=== PATIENT | female | born 1990 | race African-American/Black ===

== ENCOUNTER 2017-11-12 10:00 | Emergency (ER) | payer OTHER ==
[~2017-11-12] VITALS: Ht 167.6 cm; Wt 71.2 kg
[2017-11-12 10:10] VITALS: BP 115/66
[2017-11-12] MEDS ORDERED: CEPHALEXIN500 MG ORAL (11:01)
[2017-11-12] MEDS ORDERED: PREDNISONE20 MG ORAL (11:01)
[2017-11-12] MEDS ORDERED: NAPHCON-A EYE D15 ML OP (11:01)
[2017-11-12] MEDS ORDERED: CLARITIN10 M2 ORAL (11:06)
[2017-11-12 11:12] VITALS: BP 115/66
--- NOTE | 2017-11-12 13:05 | Emergency Room Report ---
History of Present Illness General Chief Complaint: General Complaint Source: Patient Present Illness HPI Patient presents emergency department today complaining of right eye swelling. Patient states that she's had intermittent episodes of right eye swelling. She was seen at [facility] where she was told that it might be a stye and was given antibiotic eyedrops. She states the symptoms are not improving she still having episodes were swollen and gets better throughout the day. She does not remember using a typical creams or any mascara. No other complaints are noted. She denies any difficulty with vision or eye pain. She does complain of right upper eyelid discomfort when swallowing. No other complaints are noted. Patient stated that she took some Benadryl with some variable improvement.No other modifying factors. No other associated signs and symptoms. No other complaints were noted. Allergies: Coded Allergies: No Known Allergies (Unverified , 11/12/17) Patient History Past Medical History: none Past Surgical History: none Pertinent Family History: none Social History: Denies: smoking, alcohol use, drug use Last Menstrual Period: 10/02/17 Reviewed Nursing Documentation: PMH: Agreed; PSxH: Agreed Nursing Documentation-PMH Past Medical History: No Stated History Review of Systems All Other Systems: negative except mentioned in HPI Physical Exam Vital Signs Date Time Temp Pulse Resp B/P (MAP) Pulse Ox O2 Delivery O2 Flow Rate FiO2 11/12/17 10:10 98.9 94 18 115/66 99 Room Air 98.9 Sp02 EP Interpretation: reviewed, normal General Appearance: normal inspection, well appearing, no apparent distress, alert Head: atraumatic Eyes: right eye lid inflammation; bilateral eye normal inspection ENT: normal ENT inspection, hearing grossly normal, normal voice Neck: normal inspection, full range of motion, supple, no bony tend Respiratory: normal inspection, lungs clear, normal breath sounds, no respiratory distress, no retraction, no wheezing Cardiovascular #1: regular rate, rhythm, no edema Gastrointestinal: normal inspection, normal bowel sounds, non tender, soft, no guarding, no hernia Genitourinary: no CVA tenderness Musculoskeletal: normal inspection, back normal, normal range of motion Neurologic: normal inspection, alert, responsive, speech normal Psychiatric: normal inspection, judgement/insight normal, mood/affect normal Skin: normal inspection, normal color, no rash Medical Decision Making Diagnostic Impression: Primary Impression: Blepharitis of eyelid of right eye ER Course Patient presents emergency department today complaining of right eye swelling. Differential considerations include stye, blepharitis, allergic reaction. Patient's exam appears fairly benign but there is evidence of edema of patient' s right eyelid. This is consistent with acute allergic reaction. Other considerations include possible infection. Given patient's presentation I felt it was reasonable to try some Naphcon, Claritin, prednisone, Keflex. Recommend outpatient follow-up with ophthalmology.Patient is advised to follow up with primary doctor in 2-3 days and return the emergency room for any worsening symptoms and as needed. Last Vital Signs Date Time Temp Pulse Resp B/P (MAP) Pulse Ox O2 Delivery O2 Flow Rate FiO2 11/12/17 11:12 98.9 94 18 115/66 99 Room Air 98.9 Status: improved Disposition: HOME, SELF-CARE Condition: Stable Scripts Loratadine (CLARITIN) 10 Mg Capsule 10 MG ORAL DAILY for 14 Days, CAP Prov: Gulshan Rodriguez MD 11/12/17 Naphazoline Hcl/Phenir Mal (NAPHCON-A EYE DROPS) 15 Ml Drops 15 ML OP QID for 7 Days, ML Prov: Gulshan Rodriguez MD 11/12/17 Prednisone* (PREDNISONE*) 20 Mg Tablet 40 MG ORAL DAILY, #10 TAB Prov: Gulshan Rodriguez MD 11/12/17 Cephalexin* (KEFLEX*) 500 Mg Capsule 500 MG ORAL EVERY 6 HOURS for 7 Days, CAP Prov: Gulshan Rodriguez MD 11/12/17 Referrals: [facility] ([facility]P) Baldemar Ponce MD Patient Instructions: Blepharitis Gulshan Rodriguez MD Nov 12, 2017 13:05
== END 2017-11-12 11:13 | disposition home or self-care (01) ==
LOC: EMR 11:10
DX: H01.001 Unspecified blepharitis right upper eyelid (principal)
CPT/HCPCS: 99284; J7512

== ENCOUNTER 2018-09-16 10:47 | Emergency (ER) | payer OTHER ==
[~2018-09-16] VITALS: Ht 170.2 cm; Wt 72.6 kg
[~2018-09-16 10:47] MED LIST: CEPHALEXIN500 MG ORAL; CLARITIN10 M2 ORAL; NAPHCON-A EYE D15 ML OP; PREDNISONE20 MG ORAL
--- NOTE | 2018-09-16 11:11 | NUR ---
ED Nurse Note: Pt came into the ER w/ complaints of sore throat x 2 days. Hoarseness noted on pt. Pt stated the pain in her throat is an 8/10. Non radiating. Pt is A + O x4. Ambulatory. Skin warm to touch.
[2018-09-16 11:12] VITALS: BP 97/66
[2018-09-16] MEDS ORDERED: TYLENOL EXTRA500 MG ORAL (11:41)
[2018-09-16] MEDS ORDERED: AMOXICILLIN500 MG ORAL (11:41)
[2018-09-16 11:46] VITALS: BP 100/62
--- NOTE | 2018-09-16 11:47 | NUR ---
ER DISCHARGE NOTE: Patient is cleared to be discharged per ERMD, pt is aox4, on room air, with stable vital signs. pt was given dc and prescription instructions, pt was able to verbalize understanding, pt id band removed without complications. pt is able to ambulate with steady gait. pt took all belongings.
--- NOTE | 2018-09-16 11:53 | Emergency Room Report ---
History of Present Illness General Chief Complaint: Sore Throat Source: Patient Present Illness HPI 28-year-old female presents ED for evaluation. Complaining of sore throat for the last 2 days. Dull, 8 out of 10, nonradiating. Radiating towards the left ear. Denies cough. Denies fevers chills. Denies sick contacts or recent travel. No other aggravating relieving factors. Denies any other associated symptoms Allergies: Coded Allergies: No Known Allergies (Unverified , 11/12/17) Patient History Past Medical History: none Past Surgical History: none Pertinent Family History: none Social History: Denies: smoking, alcohol use, drug use Last Menstrual Period: 4-7 Now: No Immunizations: UTD Reviewed Nursing Documentation: PMH: Agreed; PSxH: Agreed Nursing Documentation-PMH Past Medical History: No Stated History Review of Systems All Other Systems: negative except mentioned in HPI Physical Exam Vital Signs Date Time Temp Pulse Resp B/P (MAP) Pulse Ox O2 Delivery O2 Flow Rate FiO2 09/16/18 11:06 98.8 82 20 98 Room Air 09/16/18 11:12 97/66 Sp02 EP Interpretation: reviewed, normal General Appearance: no apparent distress, alert, GCS 15, non-toxic Head: normocephalic, atraumatic Eyes: bilateral eye normal inspection, bilateral eye PERRL ENT: hearing grossly normal, no angioedema, normal voice, TMs + canals normal, pharyngeal erythema, tonsillar exudate Neck: full range of motion, supple, no meningismus, supple/symm/no masses Respiratory: chest non-tender, lungs clear, normal breath sounds, speaking full sentences Cardiovascular #1: regular rate, rhythm, no edema Cardiovascular #2: 2+ carotid (R), 2+ carotid (L), 2+ radial (R), 2+ radial (L) , 2+ dorsalis pedis (R), 2+ dorsalis pedis (L) Gastrointestinal: normal bowel sounds, non tender, soft, non-distended, no guarding, no rebound Rectal: deferred Genitourinary: normal inspection, no CVA tenderness Musculoskeletal: back normal, gait/station normal, normal range of motion, non- tender Neurologic: alert, oriented x3, responsive, motor strength/tone normal, sensory intact, speech normal Psychiatric: judgement/insight normal, memory normal, mood/affect normal, no suicidal/homicidal ideation Reflexes: 3+ bicep (R), 3+ bicep (L), 3+ tricep (R), 3+ tricep (L), 3+ knee (R) , 3+ knee (L) Skin: normal color, no rash, warm/dry, well hydrated Lymphatic: no adenopathy Medical Decision Making Diagnostic Impression: Primary Impression: Pharyngitis Qualified Codes: J02.9 - Acute pharyngitis, unspecified ER Course Hospital Course 28-year-old female presents to ED complaining of sore throat Differential diagnoses include: URI, pharyngitis, otitis media Clinical course Patient placed on stretcher. After initial history, physical exam reveals a female in no acute distress. Bilateral TM unremarkable. There is pharyngeal erythema w/ tonsillar exudates. Noted lymphadenopathy. Clinical findings consistent with pharyngitis. Discussed findings with patient. We'll discharged to home with antibiotics. Safe for discharge and close outpatient follow-up. Does not have a PMD. We'll provide referrals Diagnosis - pharyngitis Stable and discharged home with prescriptions for tylenol, amoxicillin. Instructed to followup with PMD. return to ED if symptoms recur or worsen Last Vital Signs Date Time Temp Pulse Resp B/P (MAP) Pulse Ox O2 Delivery O2 Flow Rate FiO2 09/16/18 11:46 98.2 67 19 100/62 98 Room Air Status: improved Disposition: HOME, SELF-CARE Condition: Stable Scripts Acetaminophen* (TYLENOL EXTRA STRENGTH*) 500 Mg Tablet 500 MG ORAL Q8H PRN for Prn Headache/Temp > 101, #30 TAB 0 Refills Prov: Saman Vegas MD 09/16/18 Amoxicillin* (AMOXIL*) 500 Mg Capsule 500 MG ORAL THREE TIMES A DAY, #21 CAP Prov: Saman Vegas MD 09/16/18 Referrals: [facility] Patient Instructions: Pharyngitis, [id number] Saman Vegas MD September 16, 2018 11:53
== END 2018-09-16 11:50 | disposition home or self-care (01) ==
LOC: EMR 11:49
DX: J02.9 Acute pharyngitis, unspecified (principal)
CPT/HCPCS: 99282

== ENCOUNTER 2018-10-01 09:42 | Emergency (ER) | payer OTHER ==
[~2018-10-01] VITALS: Ht 170.2 cm; Wt 72.6 kg
[~2018-10-01 09:42] MED LIST changes: +AMOXICILLIN500 MG ORAL; +TYLENOL EXTRA500 MG ORAL
[2018-10-01 09:47] VITALS: BP 115/74
[2018-10-01 10:28] LABS: APPEARANCE,URINE CLEAR; BILIRUBIN, URINE NEGATIVE (NEGATIVE); COLOR,URINE PALE YELLOW; GLUCOSE, URINE (UA) NEGATIVE (NEGATIVE); KETONES,URINE NEGATIVE (NEGATIVE); LEUKOCYTE ESTERASE ,URINE NEGATIVE (NEGATIVE); NITRITE,URINE NEGATIVE (NEGATIVE); PH,URINE 7 (4.5-8.0); PROTEIN,URINE 1+ (NEGATIVE); UROBILINOGEN,URINE NORMAL MG/DL (0.0-1.0)
[2018-10-01 10:30] LABS: BASOPHILS % (AUTO) 0.9 % (0.0-2.0); EOSINOPHILS % (AUTO) 1.1 % (0.0-3.0); HEMATOCRIT 35.7 % (37.0-47.0); HEMOGLOBIN 12.7 G/DL (12.0-16.0); LYMPHOCYTES % (AUTO) 25.3 % (20.0-45.0); MEAN CORPUSCULAR VOLUME 91 FL (80-99); MONOCYTES % (AUTO) 5.4 % (1.0-10.0); NEUTROPHILS % (AUTO) 67.3 % (45.0-75.0); PLATELET COUNT 243 K/UL (150-450); RED BLOOD COUNT 3.91 M/UL (4.20-5.40); RED CELL DISTRIBUTION WIDTH 11.2 % (11.6-14.8); WHITE BLOOD COUNT 10.2 K/UL (4.8-10.8)
[2018-10-01 10:38] LABS: ANION GAP 9 mmol/L (5-15); BLOOD UREA NITROGEN 6 mg/dL (7-18); CARBON DIOXIDE 28 MMOL/L (21-32); CHLORIDE 103 MMOL/L (98-107); CREATININE 0.9 MG/DL (0.55-1.30); POTASSIUM 3.8 MMOL/L (3.5-5.1); SODIUM 140 MMOL/L (136-145)
[2018-10-01 10:43] LABS: ALANINE AMINOTRANSFERASE 22 U/L (12-78); ALBUMIN 4.2 G/DL (3.4-5.0); ALBUMIN/GLOBULIN RATIO 1.2 (1.0-2.7); ALKALINE PHOSPHATASE 72 U/L (46-116); ASPARTATE AMINO TRANSFERASE 19 U/L (15-37); BILIRUBIN,TOTAL 0.7 MG/DL (0.2-1.0)
[2018-10-01 12:14] VITALS: BP 119/82
[2018-10-01] MEDS ORDERED: NKM (12:14)
--- NOTE | 2018-10-01 12:54 | Diagnostic Imaging Report ---
Indication: Pelvic pain. Negative test. Vaginal bleeding. Technique: Grayscale and duplex Doppler imaging of the pelvis performed utilizing a transabdominal and endovaginal scan. Comparison: None Findings: The size, contour, and configuration of the uterus is within normal limits. The endometrium is uniformly echogenic and normal in thickness. Endometrium measures 3 mm. The uterus measures 8 x 5.3 x 4.2 cm. The ovaries appear normal bilaterally with good dopplerable blood flow. There is no significant free fluid identified. There is a left ovarian cyst measuring 1.8 cm. This is likely physiologic. The left ovary measures 2.9 x 2.2 x 2.6 cm. Right ovary 2.8 x 1.9 x 3.4 cm. IMPRESSION: Negative pelvic ultrasound. No acute findings.
--- NOTE | 2018-10-01 15:04 | Emergency Room Report ---
History of Present Illness General Chief Complaint: Vaginal Source: Patient Present Illness HPI 28-year-old female presents ED for evaluation. Complaining of vaginal bleeding with passing clots since yesterday. States that she completed her period last week so this is unusual. Denies any pain. Did not believe she is . Denies any nausea or vomiting. Denies dysuria or hematuria. No other aggravating relieving factors. Denies any associated symptoms Allergies: Coded Allergies: No Known Allergies (Unverified , 11/12/17) Patient History Past Medical History: none Past Surgical History: none Pertinent Family History: none Social History: Denies: smoking, alcohol use, drug use Last Menstrual Period: 08/20/2018 Now: No Immunizations: UTD Reviewed Nursing Documentation: PMH: Agreed; PSxH: Agreed Nursing Documentation-PMH Past Medical History: No Stated History Review of Systems All Other Systems: negative except mentioned in HPI Physical Exam Vital Signs Date Time Temp Pulse Resp B/P (MAP) Pulse Ox O2 Delivery O2 Flow Rate FiO2 10/01/18 09:47 98.6 97 18 115/74 (88) 99 Room Air Sp02 EP Interpretation: reviewed, normal General Appearance: no apparent distress, alert, GCS 15, non-toxic Head: normocephalic, atraumatic Eyes: bilateral eye normal inspection, bilateral eye PERRL ENT: hearing grossly normal, normal pharynx, no angioedema, normal voice Neck: full range of motion, supple/symm/no masses Respiratory: chest non-tender, lungs clear, normal breath sounds, speaking full sentences Cardiovascular #1: regular rate, rhythm, no edema Cardiovascular #2: 2+ carotid (R), 2+ carotid (L), 2+ radial (R), 2+ radial (L) , 2+ dorsalis pedis (R), 2+ dorsalis pedis (L) Gastrointestinal: normal bowel sounds, non tender, soft, non-distended, no guarding, no rebound Rectal: deferred Genitourinary: normal inspection, no CVA tenderness Musculoskeletal: back normal, gait/station normal, normal range of motion, non- tender Neurologic: alert, oriented x3, responsive, motor strength/tone normal, sensory intact, speech normal Psychiatric: judgement/insight normal, memory normal, mood/affect normal, no suicidal/homicidal ideation Reflexes: 3+ bicep (R), 3+ bicep (L), 3+ tricep (R), 3+ tricep (L), 3+ knee (R) , 3+ knee (L) Skin: normal color, no rash, warm/dry, well hydrated Lymphatic: no adenopathy Medical Decision Making Diagnostic Impression: Primary Impression: Dysfunctional uterine bleeding ER Course Hospital Course 28-year-old F presents to ED with vaginal bleeding Differential diagnosis includes- ovarian cyst, torsion, ectopic , DUB Clinical course Patient placed on stretcher. After initial history and physical I ordered labs , IV fluids, pelvic US Labs - no leukocytosis, Hb/Hct stable, electrolytes ok, LFTs normal, UA unremarkable, BHCG negative pelvic US - no acute process. good flow to both ovaries discussed findings with patient. no signs of . no evidence of torsion or cyst. Recommend close follow-up with TABLE CUT OFF SAW OPERATOR as outpatient. States she does not have one. We'll provide referrals I feel this is a highly complex case requiring extensive working including EKG/ Rhythm strip, Xray/CT/US, Blood/urine lab work, repeat exams while in ED, and administration of strong opiates/narcotics for pain control, admission to hospital or close patient follow up. Diagnosis - dysfunctional uterine bleeding Stable and discharged to home. Followup with PMD. Return to ED if symptoms recur or worsen Labs Test 10/01/18 10:15 White Blood Count 10.2 K/UL (4.8-10.8) Red Blood Count 3.91 M/UL (4.20-5.40) Hemoglobin 12.7 G/DL (12.0-16.0) Hematocrit 35.7 % (37.0-47.0) Mean Corpuscular Volume 91 FL (80-99) Mean Corpuscular Hemoglobin 32.4 PG (27.0-31.0) Mean Corpuscular Hemoglobin Concent 35.5 G/DL (32.0-36.0) Red Cell Distribution Width 11.2 % (11.6-14.8) Platelet Count 243 K/UL (150-450) Mean Platelet Volume 5.9 FL (6.5-10.1) Neutrophils (%) (Auto) 67.3 % (45.0-75.0) Lymphocytes (%) (Auto) 25.3 % (20.0-45.0) Monocytes (%) (Auto) 5.4 % (1.0-10.0) Eosinophils (%) (Auto) 1.1 % (0.0-3.0) Basophils (%) (Auto) 0.9 % (0.0-2.0) Urine Color Pale yellow Urine Appearance Clear Urine pH 7 (4.5-8.0) Urine Specific Mona 1.005 (1.005-1.035) Urine Protein 1+ (NEGATIVE) Urine Glucose (UA) Negative (NEGATIVE) Urine Ketones Negative (NEGATIVE) Urine Blood 5+ (NEGATIVE) Urine Nitrite Negative (NEGATIVE) Urine Bilirubin Negative (NEGATIVE) Urine Urobilinogen Normal MG/DL (0.0-1.0) Urine Leukocyte Esterase Negative (NEGATIVE) Urine RBC 2-4 /HPF (0 - 2) Urine WBC 0 /HPF (0 - 2) Urine Squamous Epithelial Cells Occasional /LPF Urine Bacteria None /HPF (NONE) Urine HCG, Qualitative Negative (NEGATIVE) Sodium Level 140 MMOL/L (136-145) Potassium Level 3.8 MMOL/L (3.5-5.1) Chloride Level 103 MMOL/L (98-107) Carbon Dioxide Level 28 MMOL/L (21-32) Anion Gap 9 mmol/L (5-15) Blood Urea Nitrogen 6 mg/dL (7-18) Creatinine 0.9 MG/DL (0.55-1.30) Estimat Glomerular Filtration Rate > 60 mL/min (>60) Glucose Level 103 MG/DL (74-106) Calcium Level 9.0 MG/DL (8.5-10.1) Total Bilirubin 0.7 MG/DL (0.2-1.0) Aspartate Amino Transf (AST/SGOT) 19 U/L (15-37) Alanine Aminotransferase (ALT/SGPT) 22 U/L (12-78) Alkaline Phosphatase 72 U/L (46-116) Total Protein 7.6 G/DL (6.4-8.2) Albumin 4.2 G/DL (3.4-5.0) Globulin 3.4 g/dL Albumin/Globulin Ratio 1.2 (1.0-2.7) Lipase 152 U/L (73-393) CT/MRI/US Diagnostic Results CT/MRI/US Diagnostic Results : Imaging Test Ordered: Pelvic US Impression The size, contour, and configuration of the uterus is within normal limits. The endometrium is uniformly echogenic and normal in thickness. Endometrium measures 3 mm. The uterus measures 8 x 5.3 x 4.2 cm. The ovaries appear normal bilaterally with good dopplerable blood flow. There is no significant free fluid identified. There is a left ovarian cyst measuring 1.8 cm. This is likely physiologic. The left ovary measures 2.9 x 2.2 x 2.6 cm. Right ovary 2.8 x 1.9 x 3.4 cm. Last Vital Signs Date Time Temp Pulse Resp B/P (MAP) Pulse Ox O2 Delivery O2 Flow Rate FiO2 10/01/18 12:14 98.1 88 19 119/82 95 10/01/18 09:47 Room Air Status: improved Disposition: HOME, SELF-CARE Condition: Stable Referrals: [facility] Patient Instructions: Dysfunctional Uterine Bleeding Saman Vegas MD October 01, 2018 15:04
== END 2018-10-01 12:17 | disposition home or self-care (01) ==
LOC: EMR 10:12
DX: N93.8 Other specified abnormal uterine and vaginal bleeding (principal)
CPT/HCPCS: 36415; 76830; 76856; 80053; 81003; 81025; 83690; 85025; 99284

== ENCOUNTER 2020-05-30 09:16 | Emergency (ER) | payer OTHER ==
[~2020-05-30] VITALS: Ht 167.6 cm; Wt 70.3 kg
[~2020-05-30 09:16] MED LIST changes: +NKM
[2020-05-30 09:40] VITALS: BP 123/71
--- NOTE | 2020-05-30 09:40 | NUR ---
ED Nurse Note: Pt walked into ED for RL hand 4th digit "green color" and pain 11/18. Pt has no discahrge or bleeding at site. She is alert and orientedx4, ambulatory. She has been seen by DESTINEY.
[2020-05-30] MEDS ORDERED: Lidocaine 1% Plain 30 ml INJ ONE (09:45)
[2020-05-30] MEDS ORDERED: TYLENOL EXTRA500 MG ORAL (10:27)
[2020-05-30] MEDS ORDERED: CEPHALEXIN500 MG ORAL (10:27)
[2020-05-30] MEDS ORDERED: Bacitracin Oint UD TOPIC ONE (10:30)
--- NOTE | 2020-05-30 10:55 | NUR ---
ED Nurse Note: Bacitracin and dressing applied to hand site where ERMD performed I&D. Scant drainage.
--- NOTE | 2020-05-30 11:00 | NUR ---
ER DISCHARGE NOTE: Patient is cleared to be discharged per ERMD, pt is aox4, on room air, with stable vital signs. pt was given dc and prescription instructions, pt was able to verbalize understanding, pt id band removed. pt is able to ambulate with steady gait. pt took all belongings.
[2020-05-30 11:01] VITALS: BP 121/76
--- NOTE | 2020-05-30 11:15 | Emergency Room Report ---
History of Present Illness General Chief Complaint: Skin Rash/Abscess Source: Patient Present Illness HPI 29-year-old female presents with pain to finger. Notes pain and "pus" to left ring finger x4 days. Is throbbing, 7 out of 10, nonradiating. Denies fevers or chills. Denies any injury. No other aggravating relieving factors. Denies any other associated symptoms Allergies: Coded Allergies: No Known Allergies (Unverified , 11/12/17) COVID-19 Screening Contact w/high risk pt: No Experienced COVID-19 symptoms?: No COVID-19 Testing performed SKIMMER SCOOP OPERATOR: No Patient History Past Medical History: none Past Surgical History: none Pertinent Family History: none Social History: Denies: smoking, alcohol use, drug use Last Menstrual Period: 05/30/19 Now: No Immunizations: UTD Reviewed Nursing Documentation: PMH: Agreed; PSxH: Agreed Nursing Documentation-PMH Past Medical History: No Stated History Review of Systems All Other Systems: negative except mentioned in HPI Physical Exam Vital Signs Date Time Temp Pulse Resp B/P (MAP) Pulse Ox O2 Delivery O2 Flow Rate FiO2 05/30/20 09:29 98.4 68 18 111/73 (86) 97 Room Air Sp02 EP Interpretation: reviewed, normal General Appearance: no apparent distress, alert, GCS 15, non-toxic Head: normocephalic, atraumatic Eyes: bilateral eye normal inspection, bilateral eye PERRL ENT: hearing grossly normal, normal pharynx, no angioedema, normal voice Neck: full range of motion, supple/symm/no masses Respiratory: chest non-tender, lungs clear, normal breath sounds, speaking full sentences Cardiovascular #1: regular rate, rhythm, no edema Cardiovascular #2: 2+ carotid (R), 2+ carotid (L), 2+ radial (R), 2+ radial (L), 2+ dorsalis pedis (R), 2+ dorsalis pedis (L) Gastrointestinal: normal bowel sounds, non tender, soft, non-distended, no guarding, no rebound Rectal: deferred Genitourinary: normal inspection, no CVA tenderness Musculoskeletal: back normal, normal range of motion, gait/station normal, non- tender Neurologic: alert, motor strength/tone normal, oriented x3, sensory intact, responsive, speech normal Psychiatric: judgement/insight normal, memory normal, mood/affect normal, no suicidal/homicidal ideation Reflexes: 3+ bicep (R), 3+ bicep (L), 3+ tricep (R), 3+ tricep (L), 3+ knee (R), 3+ knee (L) Skin: other - purulent discharge distal aspect L 4th finger at nailbed Lymphatic: no adenopathy Procedures Incision and Drainage Incision and Drainage : Consent: Verbal Blade Size: 11 I & D Procedure: betadine prep, sterile drapes applied, sterile dressing applied Wound Location: upper extremity - L 4th finger Wound's Depth, Shape: other - paronychia Wound Explored: clean Anesthesia: 1% Lidocaine Splint Applied?: No Sling Applied?: No Patient Tolerated: Well Complications: None Medical Decision Making Diagnostic Impression: Primary Impression: Paronychia ER Course Hospital Course 29-year-old F presents to ED with pain L ring finger Clinical course Patient placed on stretcher. After initial history physical exam reveals a female in no acute distress. There is some swelling and fluctuance around the L ring finger nailbed. Consistent with paronychia digital block applied. Paronychia drained without complication. Dressing applied Safe for discharge with close outpatient follow-up. States she has a PMD Diagnosis - paronychia Stable and discharged to home with prescription for tylenol, Keflex. wound Care instructions given. Followup with PMD. Return to ED if any signs of infection develop Last Vital Signs Date Time Temp Pulse Resp B/P (MAP) Pulse Ox O2 Delivery O2 Flow Rate FiO2 05/30/20 11:01 98.4 75 16 121/76 99 Room Air Status: improved Disposition: HOME, SELF-CARE Condition: Stable Scripts Acetaminophen* (TYLENOL EXTRA STRENGTH*) 500 Mg Tablet 500 MG ORAL Q8H PRN for Prn Headache/Temp > 101, #30 TAB 0 Refills Prov: Saman Vegas MD 05/30/20 Cephalexin* (KEFLEX*) 500 Mg Capsule 500 MG ORAL EVERY 6 HOURS, #28 CAP Prov: Saman Vegas MD 05/30/20 Referrals: [facility] (PCP) Patient Instructions: [id number] Saamn Vegas MD May 30, 2020 11:15
== END 2020-05-30 11:01 | disposition home or self-care (01) ==
LOC: EMR 10:04
DX: L03.012 Cellulitis of left finger (principal)
CPT/HCPCS: 10060; J2001; Z7502; 99282

== ENCOUNTER 2020-07-21 09:01 | Emergency (ER) | payer OTHER ==
[~2020-07-21] VITALS: Ht 170.2 cm; Wt 72.6 kg
[2020-07-21 09:17] VITALS: BP 107/69
--- NOTE | 2020-07-21 09:18 | NUR ---
pt arrives to ER with complaints of right hand pain. pt states symptoms began 2 weeks collateral to hang nail. pt states right 4 index finger is tender to touch with minor swelling and discoloration.
[2020-07-21] MEDS ORDERED: Bacitracin Oint UD TOPIC ONE (09:36)
[2020-07-21] MEDS ORDERED: BACITRACIN ZIN1 EACH TOPIC (09:36)
[2020-07-21] MEDS ORDERED: CEPHALEXIN500 MG ORAL (09:40)
--- NOTE | 2020-07-21 09:47 | NUR ---
pt presented with infection within fingernail. After assessment, ER provider explained his standard plan of care and treatment. pt requested antibiotics instead.ER provider explained no antibiotics are needed for treatment. after continuing to go back and forth, pt became loud with provider. I explained to pt she cannot hell at provider, we are only trying to help. pt calmed down allowed procedure, allowed wound care, received cleaning instructions, and discharged. Charge nurse rounded on pt and pt was discharged without any complaints.
--- NOTE | 2020-07-21 09:47 | Emergency Room Report ---
History of Present Illness General Chief Complaint: Skin Rash/Abscess Source: Patient Present Illness HPI Disclaimer: Please note that this report is being documented using [employer]AG[employer] technology. This can lead to erroneous entry secondary to incorrect interpretation by the dictating instrument. HPI: 29-year-old female presents with infection on right ring finger. Patient states she ripped off a hangnail few days ago noticed redness swelling and pressure over the ulnar aspect of the fingernail on the right ring finger. States she has had paronychias drained before. No other injury reported. Pain with pressure and picking things up. Has not taken any other medications for it. PMH: Reviewed PSH: Reviewed Allergies: Reviewed Social Hx: Reviewed Allergies: Coded Allergies: No Known Allergies (Unverified , 11/12/17) COVID-19 Screening Contact w/high risk pt: No Experienced COVID-19 symptoms?: No COVID-19 Testing performed SKATES OPERATOR: No Patient History Now: No Nursing Documentation-PMH Past Medical History: No Stated History Review of Systems All Other Systems: negative except mentioned in HPI Physical Exam Vital Signs Date Time Temp Pulse Resp B/P (MAP) Pulse Ox O2 Delivery O2 Flow Rate FiO2 07/21/20 09:05 98.6 68 16 107/69 (82) 97 Room Air General: Awake and alert, no acute distress HEENT: NC/AT. EOMI. Resp: Normal work of breathing Skin: Intact. There is a small area of purulence and fluctuance over the right ring finger. TTP. No bleeding or drainage. MSK: Normal tone and bulk. Moving all extremities. No obvious deformity. Neuro: Awake and alert. Mentating appropriately Procedures Additional Procedure Procedure Narrative Paronychia incision Paronychia identified over the ulnar aspect of the nail on the right ring finger. Area sterilized with chlorhexidine prep. 11 blade used for small incision parallel to the nail. Applied pressure to express mild amount of purulent material. Cleaned and bacitracin ointment applied. Sterile bandage applied. Patient tolerated the procedure well. No complications. No blood loss. Neurovascularly intact at the start and end of the procedure. Medical Decision Making Diagnostic Impression: Primary Impression: Paronychia ER Course 29-year-old female presents with finger infection. Patient had a paronychia which was drained at bedside by me. Instructed to continue soaking the digit and applying bacitracin. Also prescribed the patient Keflex to use if symptoms fail to improve on its own over the next few days. She can follow-up with PMD as needed or return to the ER with new or worsening symptoms. Last Vital Signs Date Time Temp Pulse Resp B/P (MAP) Pulse Ox O2 Delivery O2 Flow Rate FiO2 07/21/20 09:17 98.6 16 107/69 97 Room Air 07/21/20 09:05 68 Disposition: HOME, SELF-CARE Condition: Stable Scripts Cephalexin* (KEFLEX*) 500 Mg Capsule 500 MG ORAL EVERY 12 HOURS, #14 CAP 0 Refills Prov: Angel Santiago MD 07/21/20 Bacitracin Zinc* (BACITRACIN ZINC*) 1 Each Packet 1 APPLIC TOPIC THREE TIMES A DAY for 7 Days, #21 PACKET Prov: Angel Santiago MD 07/21/20 Referrals: [facility],REFERR[facility] (PCP) Patient Instructions: Dino Additional Instructions: Please follow-up with your primary care doctor in the next 1 to 3 days to discuss this emergency department visit and for reevaluation. If you have any new or worsening symptoms please return to the emergency department for reevaluation. Please note that this report is being documented using [employer] technology. This can lead to erroneous entry secondary to incorrect interpretation by the d ictating instrument. Angel Santiago MD Jul 21, 2020 09:46
== END 2020-07-21 09:53 | disposition home or self-care (01) ==
LOC: EMR 09:30
DX: L03.011 Cellulitis of right finger (principal)
CPT/HCPCS: 10060; Z7502; 99282